=== PATIENT | male | born 1970 | race Caucasian/White ===

== ENCOUNTER 2018-04-25 12:39 | Emergency (ER) | payer OTHER ==
[2018-04-25] MEDS: ADACEL/BOOSTRIX VACCINE (DIPHTH/PERTUSS/ACELL/TETANUS)0.5ML SYR (90715) IM (13:29)
[2018-04-25] MEDS: LIDOCAINE 1% MDV 20ML VIAL IM (13:29)
== END 2018-04-25 14:21 | disposition home or self-care (01) ==
LOC: M ED 12:39
DX: S61.218A Laceration without foreign body of other finger without damage to nail, initial encounter (principal); W29.8XXA Contact with other powered hand tools and household machinery, initial encounter; Y92.009 Unspecified place in unspecified non-institutional (private) residence as the place of occurrence of the external cause
CPT/HCPCS: 90715

== ENCOUNTER → 2018-11-13 | Outpatient (REF) | payer OTHER ==
[~2018-11-13] MED LIST: FLUC150T
[2018-11-13 14:18] LABS: ALBUMIN 4.3 GM/DL (3.2-5.2); ALT/SGPT 25 U/L (12-78); BASO # 0.1 10^3/uL (0.0-0.2); BILIRUBIN,TOTAL 0.6 MG/DL (0.2-1.0); BLOOD UREA NITROGEN 21 MG/DL (7-18); CALCIUM LEVEL 8.9 MG/DL (8.5-10.1); CARBON DIOXIDE LEVEL 30 MEQ/L (21-32); CHLORIDE LEVEL 103 MEQ/L (98-107); CHOLESTEROL LEVEL 206 MG/DL (<200); CREATININE FOR GFR 1.06 MG/DL (0.70-1.30); EOS # 0.2 10^3/uL (0.0-0.50); GLOMERULAR FILTRATION RATE > 60.0 (>60); GLUCOSE, FASTING 90 MG/DL (70-100); HDL CHOLESTEROL 99 MG/DL (>40); HEMATOCRIT 43.9 % (42.0-52.0); LDL CHOLESTEROL 95 MG/DL (<100); LYMPH # 1.8 10^3/uL (1.5-4.5); LYMPH % 37.9 % (24.0-44.0); MEAN CORPUSCULAR HEMOGLOBIN 31.4 pg (27.0-33.0); MEAN CORPUSCULAR HGB CONC 34.2 g/dl (32.0-36.5); MEAN CORPUSCULAR VOLUME 91.8 fl (80.0-96.0); MONO # 0.5 10^3/uL (0.0-0.8); MONO % 10.1 % (0.0-5.0); NEUTROPHILS # 2.2 10^3/uL (1.8-7.7); NEUTROPHILS % 45.8 % (36.0-66.0); NON-HDL-C 107 MG/DL; PLATELET COUNT, AUTOMATED 224 10^3/uL (150-450); POTASSIUM SERUM 4.5 MEQ/L (3.5-5.1); RED BLOOD COUNT 4.78 10^6/uL (4.30-6.10); SODIUM LEVEL 140 MEQ/L (136-145); TRIGLYCERIDES LEVEL 58 MG/DL (<150); WHITE BLOOD COUNT 4.8 10^3/uL (4.0-10.0)
[2018-11-13 14:22] LABS: TOTAL 25(OH) VITAMIN D 60.1 NG/ML (30.0-100.0)
== END ==
LOC: M SFHCSACK 07:58
PROVIDERS: ATTEND Physician Assistant
DX: B36.0 Pityriasis versicolor (principal); E78.2 Mixed hyperlipidemia; Z13.21 Encounter for screening for nutritional disorder

== ENCOUNTER → 2018-11-20 | Outpatient (REF) | payer OTHER ==
[2018-11-20 14:55] LABS: APPEARANCE, URINE CLEAR (CLEAR); BACTERIA, URINE AUTO NEGATIVE (NEGATIVE); BILIRUBIN, URINE AUTO NEGATIVE (NEGATIVE); BLOOD, URINE BLOOD NEGATIVE (NEGATIVE); COLOR, URINE YELLOW (YELLOW); GLUCOSE, URINE (UA) AUTO NEGATIVE (NEGATIVE); KETONE, URINE AUTO TRACE mg/dL (NEGATIVE); LEUKOCYTE ESTERASE, URINE AUTO NEGATIVE (NEGATIVE); MUCUS, URINE SMALL (NEGATIVE); NITRITE, URINE AUTO NEGATIVE (NEGATIVE); PROTEIN, URINE AUTO NEGATIVE (NEGATIVE); RBC, URINE AUTO 0 /HPF (0-3); SPECIFIC GRAVITY URINE AUTO 1.024 (1.002-1.035); SQUAMOUS EPITHELIAL CELL UR AU 0 /HPF (0-6); UROBILINOGEN, URINE AUTO 0.2 mg/dL (0.0-2.0); WBC, URINE AUTO 1 /HPF (0-3)
== END ==
LOC: M SFHCSACK 14:19
PROVIDERS: ATTEND Physician Assistant
DX: Z00.00 Encounter for general adult medical examination without abnormal findings (principal)
CPT/HCPCS: 81001; G0463

== ENCOUNTER → 2019-07-28 | Outpatient (CLI) | payer OTHER ==
--- NOTE | 2019-07-28 17:02 | REP ---
Five views left ribs/thorax: 07/28/2019. Indication: Left rib pain following injury. Comparison: None. Findings: There is no evidence of rib fracture. There is no lung contusion. The visualized lungs are clear. There is no pleural effusion or pneumothorax. Impression: There is no evidence of rib fracture or lung contusion. Electronically Signed by Jeevan Duarte DO 07/28/2019 04:53 P
== END ==
LOC: M WUC 11:31
PROVIDERS: ATTEND Physician Assistant
DX: R07.89 Other chest pain (principal); W19.XXXA Unspecified fall, initial encounter
CPT/HCPCS: 71101; G0463

== ENCOUNTER 2022-05-30 15:55 | Emergency (ER) | payer OTHER ==
[~2022-05-30] VITALS: Ht 165.1 cm; Wt 76.9 kg
[2022-05-30 15:55] VITALS: BP 160/95
[~2022-05-30 15:55] MED LIST changes: -FLUC150T; +FLUC150T9
== END 2022-05-30 18:22 | disposition home or self-care (01) ==
LOC: M ED 15:55
DX: S20.229A Contusion of unspecified back wall of thorax, initial encounter (principal); V29.9XXA Motorcycle rider (driver) (passenger) injured in unspecified traffic accident, initial encounter; M43.02 Spondylolysis, cervical region; M48.02 Spinal stenosis, cervical region

== ENCOUNTER 2024-04-17 10:03 | Emergency (ER) | payer OTHER ==
[~2024-04-17] VITALS: Ht 165.1 cm; Wt 74.0 kg
[2024-04-17 10:04] VITALS: BP 156/90; TEMP 97.8; O2SAT 100
== END 2024-04-17 12:01 | disposition home or self-care (01) ==
LOC: M ED 10:03
DX: S62.355A Nondisplaced fracture of shaft of fourth metacarpal bone, left hand, initial encounter for closed fracture (principal); W19.XXXA Unspecified fall, initial encounter; Y92.9 Unspecified place or not applicable; Y93.9 Activity, unspecified; Y99.0 Civilian activity done for income or pay

== ENCOUNTER → 2024-05-10 | Outpatient (CLI) | payer OTHER | LOC: M SOG 07:58 | PROVIDERS: ATTEND Orthopaedic Surgery | DX: M79.642 Pain in left hand (principal) ==

== ENCOUNTER → 2024-06-10 | Outpatient (CLI) | payer OTHER | LOC: M SOG 07:19 | PROVIDERS: ATTEND Orthopaedic Surgery | DX: M79.642 Pain in left hand (principal) ==